=== PATIENT | female | born 1975 | race Caucasian/White ===

== ENCOUNTER → 2017-11-06 | Day surgery (SDC) | payer BC ==
[~2017-11-06] MED LIST: FENTANYL CITRATE/PF 100MCG/2 ML INJ ONE; LIDOCAINE HCL 2% LOCAL INJ 5 ML SDV VIAL INJ ONE; MIDAZOLAM HCL 2 MG/2 ML VIAL ONE; MULTIVITAMINS1 EAC7 PO; OMEPRAZOLE40 MG PO; PROPOFOL IV EMULSION 10 MG/ML 20 ML VIAL ONE
[2017-11-06 12:07] LABS: BILIRUBIN,URINE NEGATIVE (NEGATIVE); COLOR,URINE YELLOW (YELLOW); KETONES,URINE NEGATIVE (NEGATIVE); LEUKOCYTE ESTERASE ,URINE NEGATIVE (NEGATIVE); NITRITE,URINE NEGATIVE (NEGATIVE); PROTEIN,URINE DIPSTICK NEGATIVE (NEGATIVE); URINE UROBILINOGEN 0.2 mg/dL (0.2 - 1)
[2017-11-06 12:12] LABS: CLARITY,URINE CLEAR (CLEAR)
--- NOTE | 2017-11-07 01:15 | Operative Report ---
DATE OF PROCEDURE: November 06, 2017 PROCEDURE PERFORMED: Esophagogastroduodenoscopy note. REFERRING PHYSICIAN: Dr. Soraida Wilder INDICATIONS FOR EGD: Heartburn, indigestion. MEDICATION: Patient was done under MAC. Please see anesthesiologist note. PROCEDURE IN DETAIL: With the patient in left lateral decubitus position, the flexible fiberoptic Olympus gastroscope was introduced into the esophagus under direct visualization without any difficulty. There was some patchy erythema noted in the distal esophagus. The scope was then advanced with ease into her stomach. Mucosa overlying the antrum and the body revealed some diffuse erythema and [id number] edema, and biopsies were obtained and sent to stain for H. pylori. Pylorus appeared to be of normal contour and shape, was intubated with ease, and the scope was advanced all the way to the second portion of the duodenum. The scope was then withdrawn slowly. Mucosa overlying the proximal second portion and the duodenal bulb appeared to be within normal limits. The scope was then withdrawn back into the stomach and retroflexed, and the mucosa overlying the fundus and the cardia appeared to be within normal limits. The scope was then straightened out. The stomach was decompressed. The scope was subsequently withdrawn. Patient tolerated the procedure well. IMPRESSION: 1. Distal esophagitis, mild. 2. Gastritis, biopsied. Biopsy sent to stain for Helicobacter pylori. PLAN: Follow up histology. Continue omeprazole 40 mg 1 p.o. q.a.m. a.c. Job#: [id number] cc:SORAIDA WILDER DO
== END | disposition home or self-care (01) ==
LOC: ENDO 11:34
PROVIDERS: ATTEND Internal Medicine Gastroenterology
DX: K29.70 Gastritis, unspecified, without bleeding (principal); K20.9 Esophagitis, unspecified; R06.83 Snoring; Z68.37 Body mass index [BMI] 37.0-37.9, adult
CPT/HCPCS: 43239; 81003; 81025; 87086; J2001; J2250

== ENCOUNTER 2018-04-14 20:14 | Emergency (ER) | payer BC ==
[~2018-04-14] VITALS: Ht 157.5 cm; Wt 93.0 kg
[~2018-04-14 20:14] MED LIST changes: -FENTANYL CITRATE/PF 100MCG/2 ML INJ ONE; -LIDOCAINE HCL 2% LOCAL INJ 5 ML SDV VIAL INJ ONE; -MIDAZOLAM HCL 2 MG/2 ML VIAL ONE; -PROPOFOL IV EMULSION 10 MG/ML 20 ML VIAL ONE
[2018-04-14] MEDS ORDERED: SODIUM CHLORIDE 0.9% 1000ML 1,000 ML IV ONE (20:45)
[2018-04-14 23:09] VITALS: BP 160/74
[2018-04-14] MEDS ORDERED: METRONIDAZOLE 500 MG TAB PO ONE (23:15)
[2018-04-14] MEDS ORDERED: CIPROFLOXACIN 500 MG TAB PO SCH (23:30)
== END 2018-04-14 23:26 | disposition home or self-care (01) ==
LOC: FSED 20:14
DX: R10.84 Generalized abdominal pain (principal); R11.0 Nausea; R19.7 Diarrhea, unspecified; K52.9 Noninfective gastroenteritis and colitis, unspecified
CPT/HCPCS: 80053; 80076; 81003; 81025; 85025; 99283; J7030

== ENCOUNTER → 2025-07-06 | Day surgery (SDC) | payer BC ==
[2025-07-04 14:09] LABS: EST GLOMERULAR FILTRATION RATE 106.0 ML/MIN (>=60)
[~2025-07-06] MED LIST changes: +ACETAMINOPHEN 1000 MG/100 ML 0 ML IV ONE; +DEXAMETHASONE SOD PHOS INJ 4 MG/ML SDV ONE; +HYDROCODON-ACE1 EA11 PO; +HYDROCODONE/APAP 7.5MG-325MG 1 EA TAB ONE; +LIDOCAINE HCL 2% LOCAL INJ 5 ML SDV VIAL INJ ONE; +ONDANSETRON HCL INJ 2MG/ML 2ML 2 MG/ML VIAL ONE; +PROPOFOL IV EMULSION 10 MG/ML 20 ML VIAL ONE; +ROCURONIUM BROMIDE 1 ML IV ONE; +SEVOFLURANE INHAL SOLN 250 ML PEN BTL ONE; +SUCCINYLCHOLINE CHLORIDE 20 MG/ML 10ML VIAL ONE; +SUGAMMADEX SODIUM 200 MG/2 ML VIAL IV ONE
[2025-07-06 09:50] LABS: BASOPHILS % 0.9 % (0.0-1.0); EOSINOPHILS % 0.9 % (0.0-6.0); LYMPHOCYTES % 36.1 % (18.0-39.1); MONOCYTES % 5.7 % (4.4-11.3); NEUTROPHILS % 56.1 % (38.7-80.0); RED CELL DISTRIBUTION WIDTH 13.3 % (11.7-14.4)
[2025-07-06] MEDS: INSULIN REGULAR, HUMAN 100 UNIT/1 ML ONE (10:42)
[2025-07-06] MEDS: ACETAMINOPHEN 1000 MG/100 ML 100 ML IV ONE (12:22)
[2025-07-06] MEDS: LACTATED RINGER'S 1,000 ML ONE (12:24)
[2025-07-06 13:52] VITALS: TEMP 97.9
[2025-07-06] MEDS: ONDANSETRON HCL INJ 2MG/ML 2ML 2 MG/ML VIAL ONE (14:22)
[2025-07-06 15:30] VITALS: BP 127/69; PULSE 67; RESP 15; O2SAT 97
== END | disposition home or self-care (01) ==
LOC: OR 08:56
PROVIDERS: ATTEND Surgery
DX: K60.2 Anal fissure, unspecified (principal); E66.813 Obesity, class 3; E11.9 Type 2 diabetes mellitus without complications; K21.9 Gastro-esophageal reflux disease without esophagitis; M19.90 Unspecified osteoarthritis, unspecified site; D64.9 Anemia, unspecified; Z68.41 Body mass index [BMI] 40.0-44.9, adult; Z79.899 Other long term (current) drug therapy; Z01.810 Encounter for preprocedural cardiovascular examination; Z01.812 Encounter for preprocedural laboratory examination
CPT/HCPCS: 36415 ×2; 46200; 80048; 81025; 82948; 85025; 93005; J0131; J0330; J1100; J2003; J2405; J2704; J7121